=== PATIENT | female | born 1950 | race Caucasian/White ===

== ENCOUNTER 2018-06-12 17:42 | Inpatient (IN) ==
[2018-06-13] MEDS ORDERED: Mag Hydrox/Al Hydrox/Simeth 30 ML UDC PO PRN (17:32)
[2018-06-13] MEDS: *HR* OxyCODONE Immed Rel 5 MG TABLET PO PRN (18:51)
[2018-06-14] MEDS: Acetaminophen 325 MG TABLET PO PRN ×2 (00:03→20:06)
[2018-06-14] MEDS: *HR* OxyCODONE Immed Rel 5 MG TABLET PO PRN ×5 (05:36→20:06)
[2018-06-14] MEDS: *HR* Enoxaparin 40 MG/0.4 ML SYRINGE SQ SCH (05:36)
[2018-06-14 05:44] LABS: Basophils % 0.4 %; Eosinophils # 0.2 K/mcL (0.0-0.6); Eosinophils % 3.1 %; Hematocrit 29.1 % (35.3-44.9); Hemoglobin 9.4 g/dL (11.5-15.4); Lymphocytes # 1.1 K/mcL (0.6-4.6); Lymphocytes % 15.7 %; Mean Corpuscular HGB Conc 32.3 g/dL (31.6-35.5); Mean Corpuscular Hemoglobin 28.7 pg (28.0-33.3); Monocytes # 0.6 K/mcL (0.0-1.3); Monocytes % 8.1 %; Platelet Count 432 K/mcL (140-400); Red Blood Count 3.27 M/mcL (3.82-4.97); Red Cell Distribution Width 15.2 % (11.5-14.5); Segmented Neutrophils % 71.7 %
[2018-06-14 05:52] LABS: INR 1.2; Prothrombin Time 13.4 Seconds (9.4-12.1)
[2018-06-14 06:03] LABS: Blood Urea Nitrogen 16 mg/dL (8-23); Calcium 9.2 mg/dL (8.6-10.3); Carbon Dioxide 26 mEq/L (23-29); Chloride 105 mEq/L (98-107); Glucose 111 mg/dL (70-105); Osmolality,Calculated 284 (280-300); Potassium 4.2 mEq/L (3.5-5.1); Sodium 136 mEq/L (136-145)
[2018-06-14 06:54] LABS: BUN/Creatinine Ratio 18 (6-26); eGFR For Non-African Americans > 60 (> 60)
[2018-06-14] MEDS: Aspirin 325 MG TABLET PO SCH (08:45)
--- NOTE | 2018-06-14 10:53 | Internal Med History&Physical ---
Date of Encounter: 06/14/18 Time of Encounter: 10:51 Assessment and Plan (1) S/P total hip arthroplasty Current visit: Yes Status: Acute Patient is a new admission to facility for rehabilitation due to deconditioning secondary to left total hip replacement. Patient also has a history of a CVA with left hemiparesis. Patient's left hip and left lateral thigh surgical incisions appear healthy, dry and intact. Noted slight edema to left hip and left leg. Patient has a PFO to left ankle due to a history of left foot drop. Patient states that she has her pain to the left hip during mobilization but that is been tolerable with current medications. Patient is currently being evaluated by PT/OT with recommendations pending. Afebrile. We will continue with current plan of care. Qualifiers: Laterality: left Qualified Code(s): Z96.642 - Presence of left artificial hip joint (2) HTN (hypertension) Current visit: Yes Status: Chronic No acute issues. Patient's vital signs were stable. Patient with a history of low systolic experienced postoperatively while at [facility]. We will continue with current medications. Qualifiers: Hypertension type: essential hypertension Qualified Code(s): I10 - Essential (primary) hypertension (3) Anemia Current visit: Yes Status: Acute No acute issues. Patient had experienced postoperative blood loss while at [facility] and had received previous transfusion. Patient's hemoglobin here at this facility was 9.4. We will continue to monitor through serial labs during her stay at this facility. Qualifiers: Anemia type: unspecified type Qualified Code(s): D64.9 - Anemia, unspecified (4) CVA (cerebral vascular accident) Current visit: Yes Status: Chronic No acute issues. Patient continues to show slight left hemiparesis. Patient continues to use brace to left foot due to history of left foot drop. No other acute neurological changes have occurred per patient to medical records since her surgery. We will continue with current plan of care and PT/OT Qualifiers: CVA mechanism: unspecified Qualified Code(s): I63.9 - Cerebral infarction, unspecified Internal Medicine - H&P: HPI Admitted From: Hospital to Hospital Transfer Plans for Post Hospital Care: Home History of present illness: Ms. Silver is a 68 year old female, who experienced a mechanical fall resulting in a intratrochanteric hip fracture with minor displacement. Patient had a left total hip replacement performed at [facility]. Per medical records patient's recovery included acute postoperative blood loss during which she received a transfusion of 2 units and issues with low blood pressure. Otherwise her recovery was uneventful and patient was transferred to this facility for further rehabilitation due to deconditioning related to her total hip replacement and due to history of a CVA with left hemiparesis. Patient currently appears relaxed and denies any current discomforts or shortness of breath. Patient states that she does have some pain to the left hip area during mobilization, but that is been tolerable with current pain medications. Patient also relates that she has continued issues with balance due to her left hemiparesis and currently wears a brace to her left ankle. Patient states that she did not need a walker prior to surgery but due to the increased weakness of the left leg use her walker during therapy. Left hip and leg remains slightly swollen, but surgical incisions appear healthy, dry and intact with a minimal amount of ecchymosis noted. No erythema. Past Med Surg Social Fam HX - Past Medical History Medical history: CVA, hyperlipidemia, hypertension Additional medical history: stroke 2015 Psychiatric history: no psych history - Past Surgical History Additional surgical history: Tubal ligation. - Social History Smoking Status: Never smoker Smokeless Tobacco Status: No Alcohol use: none Drug use: none Internal Medicine - H&P: Meds Aspirin 325 mg PO DAILY 04/13/16 [History] Atorvastatin [Lipitor] 40 mg PO HS 04/13/16 [History] Losartan Potassium [Cozaar] 5 mg PO DAILY 04/13/16 [History] 3 Allergy/AdvReac Type Severity Reaction Status Date / Time No Known Allergies Allergy Verified 05/31/18 22:07 All Systems PM: A 10-system review of systems was performed and is negative for pertinent findings except as documented above in the HPI. - Constitutional Constitutional: no chills, no fever(s), no night sweats - EENT Eyes: no change in vision, no discharge, no pain, no photophobia Ears: no ear discharge, no ear pain, no tinnitus Nose, mouth and throat: no dysphagia, no nasal discharge, no neck pain, no sore throat - Cardiovascular Cardiovascular ROS IM: as per HPI, no chest pain, no diaphoresis, no dyspnea, no lightheadedness, no palpitations, no syncope - Respiratory Respiratory: as per HPI, no cough, no dyspnea, no wheezing, no excessive phlegm production - Gastrointestinal Gastrointestinal: as per HPI, no abdominal pain, no diarrhea, no hematemesis, no hematochezia, no melena, no nausea, no vomiting - Genitourinary Genitourinary: no change in urinary stream, no dysuria, no flank pain, no hematuria - Musculoskeletal Musculoskeletal ROS IM: as per HPI, no numbness, no tingling - Integumentary Integumentary IM: no rash, no unusual bruising - Neurological Neurological ROS: as per HPI, no confusion, no convulsions, no focal weakness, no numbness, no tingling, no tremor(s) - Hematologic/Lymphatic Hematologic/Lymphatic: no easy bruising - Constitutional Vitals: Temp Pulse Resp BP Pulse Ox 97.4 F L 73 16 134/63 94 06/14/18 07:11 06/14/18 07:11 06/14/18 07:11 06/14/18 07:11 06/14/18 07:11 General appearance: Present: A&O X 3, pleasant - Head Head exam: Present: atraumatic, normocephalic - Eye Eye exam: Present: PERRL, conjuntiva pink, sclera anicteric Pupils: Present: PERRL - Neck Neck exam general surgery: Present: supple, trachea midline. Absent: lymphadenopathy - Respiratory Respiratory exam: Present: CTAB. Absent: accessory muscle use, rales, rhonchi, wheezes - Cardiovascular Cardiovascular exam: Present: RRR, +S1, +S2. Absent: diastolic murmur, gallop, rubs, systolic murmur - GI/Abdominal GI/Abdominal exam: Present: normal bowel sounds, soft, no peritoneal signs. Absent: distended, tenderness - Extremities Exam Extremities exam: Present: warm, radial pulses palpable and symmetrical. Absent : calf tenderness, cyanotic, pedal edema Additional comments: Left hip appears slightly swollen with surgical incisions to the left hip and the lateral left thigh, which appear healthy, dry and intact. Minimal ecchymosis noted surrounding the incisions and no erythema noted. No drainage. Patient's left hip and leg is swollen with nonpitting edema. - Neurological Exam Neurological exam: Present: CN II-XII intact, oriented X3. Absent: pronater drift, facial droop, speech deficit Additional comments: Patient shows left hemiparesis. LUE shows 4+/5 MS and LLE 4/5, with noted poor dorsiflexion. Left ankle has brace in place. Right extremity show 5/5. Patient denies any decreased sensitivity. No hyperreflexia. - Skin Skin exam: Present: dry, intact Internal Med - H&P Results - Labs CBC & Chem 7: 06/14/18 05:15 06/14/18 05:15 Labs: Short CBC 06/14/18 Range/Units 05:15 WBC 7.0 (4.3-11.1) K/mcL Hgb 9.4 L (11.5-15.4) g/dL Hct 29.1 L (35.3-44.9) % Plt Count 432 H (140-400) K/mcL Neutrophils # 5.0 (1.6-8.9) K/mcL BMP 06/14/18 05:15 Sodium 136 Potassium 4.2 Chloride 105 Carbon Dioxide 26 BUN 16 Creatinine 0.91 Glucose 111 H Calcium 9.2
[2018-06-15] MEDS: *HR* OxyCODONE Immed Rel 5 MG TABLET PO PRN ×3 (03:06→20:52)
[2018-06-15] MEDS: Acetaminophen 325 MG TABLET PO PRN ×3 (03:06→20:52)
[2018-06-15] MEDS: *HR* Enoxaparin 40 MG/0.4 ML SYRINGE SQ SCH (06:04)
[2018-06-15] MEDS: Aspirin 325 MG TABLET PO SCH (08:29)
--- NOTE | 2018-06-15 15:33 | Internal Med Progress Note ---
Date of Encounter: 06/15/18 Time of Encounter: 15:31 - Assessment and plan (1) S/P total hip arthroplasty Current Visit: Yes Status: Acute Assessment and plan: No acute issues. Patient's left hip and thigh surgical incisions appear healthy and healing well. Jaxson remain in place and will have them removed as patient surgery was on 06/01.. Patient has been progressing well with physical therapy. Patient does continue to have some gait imbalance due to previous CVA with slight left hemiparesis and slight left dorsiflexion weakness requiring a brace. We will continue with current medications. Patient's pain is well managed with current medications. We will continue with physical therapy. Qualifiers: Laterality: left Qualified Code(s): Z96.642 - Presence of left artificial hip joint (2) HTN (hypertension) Current Visit: Yes Status: Chronic Assessment and plan: Vital signs are stable. We will continue with current medications Qualifiers: Hypertension type: essential hypertension Qualified Code(s): I10 - Essential (primary) hypertension (3) Anemia Current Visit: Yes Status: Acute Assessment and plan: No acute issues. Patient's most recent hemoglobin is 9.4. We will continue to monitor with serial labs Qualifiers: Anemia type: unspecified type Qualified Code(s): D64.9 - Anemia, unspecified (4) CVA (cerebral vascular accident) Current Visit: Yes Status: Chronic Assessment and plan: No acute issues. Patient continues to show slight left hemiparesis and left foot drop. No acute neurological changes noted on exam. We will continue with physical therapy and current plan of care Qualifiers: CVA mechanism: unspecified Qualified Code(s): I63.9 - Cerebral infarction, unspecified - Time Spent With Patient less than 15 minutes - Subjective Interval history: Patient appears relaxed and denies any current discomforts or dyspnea. States that her PT/OT has been progressing welll. - Constitutional Vitals: Temp Pulse Resp BP Pulse Ox 98.0 F 77 16 147/74 95 06/15/18 06:45 06/15/18 06:45 06/15/18 06:45 06/15/18 06:45 06/15/18 06:45 General appearance: Present: A&O X 3, pleasant - Head Head exam: Present: atraumatic, normocephalic - Eye Eye exam: Present: PERRL, conjuntiva pink, sclera anicteric Pupils: Present: PERRL - Neck Neck exam general surgery: Present: supple, trachea midline. Absent: lymphadenopathy - Respiratory Respiratory exam: Present: CTAB. Absent: accessory muscle use, rales, rhonchi, wheezes - Cardiovascular Cardiovascular exam: Present: RRR, +S1, +S2. Absent: diastolic murmur, gallop, rubs, systolic murmur - GI/Abdominal GI/Abdominal exam: Present: normal bowel sounds, soft, no peritoneal signs. Absent: distended, tenderness - Extremities Exam Extremities exam: Present: warm, radial pulses palpable and symmetrical. Absent : calf tenderness, cyanotic, pedal edema Additional comments: Left hip remains slightly swollen. Left hip and lateral thigh with incisions that are dry and intact with jaxson remain in place. No erythema. Slight amount of ecchymosis surrounding sites. No drainage - Neurological Exam Neurological exam: Present: CN II-XII intact, oriented X3. Absent: pronater drift, facial droop, speech deficit Additional comments: Patient with remote CVA showing left hemiparesis. Left extremities show +4/5 and patient noted to have 4/5 dorsiflexion, requiring brace. Right extremities are 5/5 muscle strength. No focal deficits noted on exam - Skin Skin exam: Present: dry, intact Internal Medicine: Result - Labs CBC & Chem 7: 06/14/18 05:15 06/14/18 05:15 - ABG Interpretation ABG results: PT/INR, D-dimer PT 13.4 Seconds (9.4-12.1) H 06/14/18 05:15 Consult Discharge Plan - Plan Referrals: Nicole Barrett, [employer] [Primary Care Provider] -
[2018-06-16] MEDS: *HR* OxyCODONE Immed Rel 5 MG TABLET PO PRN ×3 (04:26→16:08)
[2018-06-16] MEDS: *HR* Enoxaparin 40 MG/0.4 ML SYRINGE SQ SCH (05:16)
[2018-06-16] MEDS: Aspirin 325 MG TABLET PO SCH (08:12)
[2018-06-16] MEDS: Acetaminophen 325 MG TABLET PO PRN ×2 (10:42→22:29)
--- NOTE | 2018-06-16 15:10 | Internal Med Progress Note ---
Date of Encounter: 06/16/18 Time of Encounter: 15:08 - Assessment and plan (1) S/P total hip arthroplasty Current Visit: Yes Status: Acute Assessment and plan: She is doing well and participating in therapy, well. She is progressing nicely and should be able to go home soon. Qualifiers: Laterality: left Qualified Code(s): Z96.642 - Presence of left artificial hip joint (2) HTN (hypertension) Current Visit: Yes Status: Chronic Assessment and plan: Insert clinically stable. Qualifiers: Hypertension type: essential hypertension Qualified Code(s): I10 - Essential (primary) hypertension (3) CVA (cerebral vascular accident) Current Visit: Yes Status: Chronic Assessment and plan: She has mild left weakness but this is doing well and stable. Qualifiers: CVA mechanism: unspecified Qualified Code(s): I63.9 - Cerebral infarction, unspecified (4) Anemia Current Visit: Yes Status: Acute Assessment and plan: She has acute blood loss anemia after surgery but this is well tolerated and not a problem, acutely. We will recheck in a couple of days. Qualifiers: Anemia type: unspecified type Qualified Code(s): D64.9 - Anemia, unspecified - Subjective Interval history: Patient is without complaint. She is participating well in therapy. Nursing notes that she had increased drainage at her dressing and they applied an ABD. However, in the 4 hours since her dressing was changed she has had only a spot on the dressing. Bowels moved normally today and she has no other complaints. Patient has no complaint of chest discomfort, dyspnea, orthopnea, palpitations, nausea or vomiting, constipation or diarrhea, other changes in bowel habits, difficulty with urination, rash or itching, or other new complaints, except as mentioned above. Review of systems is otherwise negative. I discussed management of her care with nursing staff. - Constitutional Vitals: Temp Pulse Resp BP Pulse Ox 97.4 F L 67 17 139/73 94 06/16/18 06:51 06/16/18 06:51 06/16/18 06:51 06/16/18 06:51 06/16/18 06:51 General appearance: Present: A&O X 3, pleasant Exam: Examination: (Except as mentioned above): General: In no apparent distress. Alert and oriented 3. Nondiaphoretic. Head: Atraumatic and normocephalic. Respiratory: No use of accessory muscles. Lungs are clear throughout. Normal airflow. Cardiovascular: Regular rate and rhythm without murmur appreciated. Abdomen: Bowel sounds are normal. No hepatosplenomegaly mass or tenderness appreciated. Obese and therefore difficult to palpate deeply. Extremities: No cyanosis clubbing or change in edema. (She has edema at her left knee and up into her. Operative area but no fluctuance or expressed discharge.) Skin: Warm and non-diaphoretic with no new lesions noted. Internal Medicine: Result - Labs CBC & Chem 7: 06/14/18 05:15 06/14/18 05:15 - ABG Interpretation ABG results: PT/INR, D-dimer PT 13.4 Seconds (9.4-12.1) H 06/14/18 05:15 Consult Discharge Plan - Plan Referrals: Nicole Barrett, [employer]AND[employer] REPAIR PERSON [Primary Care Provider] -
[2018-06-17] MEDS: *HR* OxyCODONE Immed Rel 5 MG TABLET PO PRN ×4 (02:34→23:18)
[2018-06-17] MEDS: Acetaminophen 325 MG TABLET PO PRN ×2 (05:44→15:48)
[2018-06-17] MEDS: *HR* Enoxaparin 40 MG/0.4 ML SYRINGE SQ SCH (05:44)
[2018-06-17] MEDS: Aspirin 325 MG TABLET PO SCH (08:12)
--- NOTE | 2018-06-17 09:28 | Internal Med Progress Note ---
Date of Encounter: 06/17/18 Time of Encounter: 09:26 - Assessment and plan (1) S/P total hip arthroplasty Current Visit: Yes Status: Acute Assessment and plan: Continue PT and OT. Continue current pain regimen. Follow up with ortho as scheduled. Qualifiers: Laterality: left Qualified Code(s): Z96.642 - Presence of left artificial hip joint (2) HTN (hypertension) Current Visit: Yes Status: Chronic Assessment and plan: Controlled with current medication. Monitor blood pressure. Qualifiers: Hypertension type: essential hypertension Qualified Code(s): I10 - Essential (primary) hypertension (3) CVA (cerebral vascular accident) Current Visit: Yes Status: Chronic Assessment and plan: Slight left-sided weakness. Qualifiers: CVA mechanism: unspecified Qualified Code(s): I63.9 - Cerebral infarction, unspecified - Time Spent With Patient less than 15 minutes - Subjective Interval history: Resting in bed, states pain is controlled to left hip with current medication.. Participated well with therapy yesterday. States bowels moved yesterday. Appetite and hydration are maintained. - Constitutional Vitals: Temp Pulse Resp BP Pulse Ox 97.6 F 70 16 156/67 99 06/17/18 07:34 06/17/18 07:34 06/17/18 07:34 06/17/18 07:34 06/17/18 07:34 General appearance: Present: A&O X 3, pleasant - Head Head exam: Present: atraumatic, normocephalic - Eye Eye exam: Present: PERRL, conjuntiva pink, sclera anicteric Pupils: Present: PERRL - Neck Neck exam general surgery: Present: supple, trachea midline. Absent: lymphadenopathy - Respiratory Respiratory exam: Present: CTAB. Absent: accessory muscle use, rales, rhonchi, wheezes - Cardiovascular Cardiovascular exam: Present: RRR, +S1, +S2. Absent: diastolic murmur, gallop, rubs, systolic murmur - GI/Abdominal GI/Abdominal exam: Present: normal bowel sounds, soft, no peritoneal signs. Absent: distended, tenderness - Extremities Exam Extremities exam: Present: warm, radial pulses palpable and symmetrical. Absent : calf tenderness, cyanotic, pedal edema - Incison Comments: Left hip surgical incisions dressings dry and intact. Incisions well approximated. No sign of infection. No drainage. - Neurological Exam Neurological exam: Present: CN II-XII intact, oriented X3, no focal deficits. Absent: pronater drift, facial droop, speech deficit - Skin Skin exam: Present: dry, intact Internal Medicine: Result - Labs CBC & Chem 7: 06/14/18 05:15 06/14/18 05:15 - ABG Interpretation ABG results: PT/INR, D-dimer PT 13.4 Seconds (9.4-12.1) H 06/14/18 05:15 Consult Discharge Plan - Plan Referrals: Nicole Barrett, TEACHER [employer] [Primary Care Provider] -
[2018-06-18] MEDS: Acetaminophen 325 MG TABLET PO PRN (01:46)
[2018-06-18] MEDS: *HR* Enoxaparin 40 MG/0.4 ML SYRINGE SQ SCH (05:20)
[2018-06-18] MEDS: *HR* OxyCODONE Immed Rel 5 MG TABLET PO PRN ×3 (05:20→21:10)
[2018-06-18 06:23] LABS: Basophils % 0.7 %; Eosinophils # 0.2 K/mcL (0.0-0.6); Eosinophils % 3.2 %; Hematocrit 31.8 % (35.3-44.9); Hemoglobin 10.2 g/dL (11.5-15.4); Immature Granulocytes % 0.5 % (0-4); Lymphocytes # 1.6 K/mcL (0.6-4.6); Mean Corpuscular HGB Conc 32.1 g/dL (31.6-35.5); Mean Corpuscular Hemoglobin 28.6 pg (28.0-33.3); Mean Corpuscular Volume 89.1 fL (83.0-100.0); Mean Platelet Volume 9.6 fL (9.4-12.4); Monocytes # 0.5 K/mcL (0.0-1.3); Monocytes % 9.1 %; Neutrophils # 3.5 K/mcL (1.6-8.9); Platelet Count 545 K/mcL (140-400); Red Blood Count 3.57 M/mcL (3.82-4.97); Red Cell Distribution Width 14.7 % (11.5-14.5); Segmented Neutrophils % 59.5 %
[2018-06-18 06:40] LABS: BUN/Creatinine Ratio 21 (6-26); Blood Urea Nitrogen 20 mg/dL (8-23); Calcium 9.3 mg/dL (8.6-10.3); Carbon Dioxide 25 mEq/L (23-29); Chloride 105 mEq/L (98-107); Glucose 99 mg/dL (70-105); Osmolality,Calculated 291 (280-300); Potassium 3.8 mEq/L (3.5-5.1); Sodium 139 mEq/L (136-145); eGFR For Non-African Americans 58 (> 60)
[2018-06-18] MEDS: Aspirin 325 MG TABLET PO SCH (08:13)
--- NOTE | 2018-06-18 11:42 | Internal Med Progress Note ---
Date of Encounter: 06/18/18 Time of Encounter: 11:39 - Assessment and plan (1) S/P total hip arthroplasty Current Visit: Yes Status: Acute Assessment and plan: Continue PT and OT. Continue current pain regimen. Follow up with ortho as scheduled. Qualifiers: Laterality: left Qualified Code(s): Z96.642 - Presence of left artificial hip joint (2) HTN (hypertension) Current Visit: Yes Status: Chronic Assessment and plan: Controlled with current medication. Monitor blood pressure. Qualifiers: Hypertension type: essential hypertension Qualified Code(s): I10 - Essential (primary) hypertension (3) CVA (cerebral vascular accident) Current Visit: Yes Status: Chronic Assessment and plan: Slight left-sided weakness from old CVA. Qualifiers: CVA mechanism: unspecified Qualified Code(s): I63.9 - Cerebral infarction, unspecified - Time Spent With Patient less than 15 minutes - Subjective Interval history: Participating well with therapy. Ambulating with Walker in hallway with therapy. Resting in bed, states pain is controlled to left hip with current medication. States bowels moved yesterday. Appetite and hydration are maintained. Denies fever, chills, nausea, vomiting or diarrhea. Blood pressure elevated this morning but resolved to normal after Cozaar was given. Asymptomatic. Denied headache or change in vision. - Constitutional Vitals: Temp Pulse Resp BP Pulse Ox 98.0 F 71 16 152/71 96 06/18/18 07:18 06/18/18 07:18 06/18/18 07:18 06/18/18 11:19 06/18/18 07:18 General appearance: Present: cooperative, A&O X 3, pleasant, no acute distress, answers questions appropriately - Head Head exam: Present: atraumatic, normocephalic - Eye Eye exam: Present: PERRL, conjuntiva pink, sclera anicteric Pupils: Present: PERRL - Neck Neck exam general surgery: Present: supple, trachea midline. Absent: lymphadenopathy - Respiratory Respiratory exam: Present: CTAB. Absent: accessory muscle use, rales, rhonchi, wheezes - Cardiovascular Cardiovascular exam: Present: RRR, +S1, +S2. Absent: diastolic murmur, gallop, rubs, systolic murmur - GI/Abdominal GI/Abdominal exam: Present: normal bowel sounds, soft, no peritoneal signs. Absent: distended, tenderness - Extremities Exam Extremities exam: Present: warm, radial pulses palpable and symmetrical. Absent : calf tenderness, cyanotic, pedal edema - Incison Comments: Left hip incision dressing dry and intact. - Neurological Exam Neurological exam: Present: CN II-XII intact, oriented X3, no focal deficits. Absent: pronater drift, facial droop, speech deficit - Skin Skin exam: Present: dry, intact Internal Medicine: Result - Labs CBC & Chem 7: 06/18/18 04:35 06/18/18 04:35 Labs: Short CBC 06/18/18 Range/Units 04:35 WBC 5.9 (4.3-11.1) K/mcL Hgb 10.2 L (11.5-15.4) g/dL Hct 31.8 L (35.3-44.9) % Plt Count 545 H (140-400) K/mcL Neutrophils # 3.5 (1.6-8.9) K/mcL BMP 06/18/18 04:35 Sodium 139 Potassium 3.8 Chloride 105 Carbon Dioxide 25 BUN 20 Creatinine 0.96 Glucose 99 Calcium 9.3 - ABG Interpretation ABG results: PT/INR, D-dimer PT 13.4 Seconds (9.4-12.1) H 06/14/18 05:15 Consult Discharge Plan - Plan Referrals: Nicole Barrett, OVER[employer] OPERATOR [Primary Care Provider] -
[2018-06-19] MEDS: Acetaminophen 325 MG TABLET PO PRN ×2 (03:53→14:10)
[2018-06-19] MEDS: *HR* Enoxaparin 40 MG/0.4 ML SYRINGE SQ SCH (06:15)
[2018-06-19] MEDS: Aspirin 325 MG TABLET PO SCH (08:05)
[2018-06-19] MEDS: *HR* OxyCODONE Immed Rel 5 MG TABLET PO PRN ×2 (09:15→20:05)
--- NOTE | 2018-06-19 10:57 | Internal Med Progress Note ---
Date of Encounter: 06/19/18 Time of Encounter: 10:55 - Assessment and plan (1) S/P total hip arthroplasty Current Visit: Yes Status: Acute Assessment and plan: Continue PT and OT. Continue current pain regimen. Follow up with ortho as scheduled. Qualifiers: Laterality: left Qualified Code(s): Z96.642 - Presence of left artificial hip joint (2) HTN (hypertension) Current Visit: Yes Status: Chronic Assessment and plan: Controlled with current medication. Monitor blood pressure. Qualifiers: Hypertension type: essential hypertension Qualified Code(s): I10 - Essential (primary) hypertension (3) CVA (cerebral vascular accident) Current Visit: Yes Status: Chronic Assessment and plan: Slight left-sided weakness from old CVA. Qualifiers: CVA mechanism: unspecified Qualified Code(s): I63.9 - Cerebral infarction, unspecified - Time Spent With Patient less than 15 minutes - Subjective Interval history: Participating well with therapy. Ambulating with Walker in hallway with therapy. Resting in bed, states pain is controlled to left hip with current medication. States bowels moved yesterday. Appetite and hydration are maintained. Denies fever, chills, nausea, vomiting or diarrhea. - Constitutional Vitals: Temp Pulse Resp BP Pulse Ox 98.3 F 69 16 168/77 97 06/19/18 06:40 06/19/18 06:40 06/19/18 06:40 06/19/18 06:40 06/19/18 06:40 General appearance: Present: cooperative, A&O X 3, pleasant, no acute distress, answers questions appropriately - Head Head exam: Present: atraumatic, normocephalic - Eye Eye exam: Present: PERRL, conjuntiva pink, sclera anicteric Pupils: Present: PERRL - Neck Neck exam general surgery: Present: supple, trachea midline. Absent: lymphadenopathy - Respiratory Respiratory exam: Present: CTAB. Absent: accessory muscle use, rales, rhonchi, wheezes - Cardiovascular Cardiovascular exam: Present: RRR, +S1, +S2. Absent: diastolic murmur, gallop, rubs, systolic murmur - GI/Abdominal GI/Abdominal exam: Present: normal bowel sounds, soft, no peritoneal signs. Absent: distended, tenderness - Extremities Exam Extremities exam: Present: warm, radial pulses palpable and symmetrical. Absent : calf tenderness, cyanotic, pedal edema - Incison Comments: Left hip dressing dry and intact. Slight surrounding edema - Neurological Exam Neurological exam: Present: CN II-XII intact, oriented X3, no focal deficits. Absent: pronater drift, facial droop, speech deficit - Skin Skin exam: Present: dry, intact Internal Medicine: Result - Labs CBC & Chem 7: 06/18/18 04:35 06/18/18 04:35 - ABG Interpretation ABG results: PT/INR, D-dimer PT 13.4 Seconds (9.4-12.1) H 06/14/18 05:15 Consult Discharge Plan - Plan Referrals: Nicole Barertt, SHELL MACHINE OPERATOR [Primary Care Provider] -
[2018-06-20] MEDS: *HR* OxyCODONE Immed Rel 5 MG TABLET PO PRN ×3 (03:17→20:33)
[2018-06-20] MEDS: Acetaminophen 325 MG TABLET PO PRN ×2 (03:19→20:32)
[2018-06-20] MEDS: *HR* Enoxaparin 40 MG/0.4 ML SYRINGE SQ SCH (05:39)
--- NOTE | 2018-06-20 07:19 | Internal Med Progress Note ---
Date of Encounter: 06/20/18 Time of Encounter: 07:16 - Assessment and plan (1) S/P total hip arthroplasty Current Visit: Yes Status: Acute Assessment and plan: No acute issues. Patient's left hip and thigh surgical incisions appear healthy and healing well. Patient has been progressing well with physical therapy. Patient does continue to have some gait imbalance due to previous CVA with slight left hemiparesis and slight left dorsiflexion weakness requiring a brace. We will continue with current medications. Patient's pain is well managed with current medications. We will continue with physical therapy. Qualifiers: Laterality: left Qualified Code(s): Z96.642 - Presence of left artificial hip joint (2) HTN (hypertension) Current Visit: Yes Status: Chronic Assessment and plan: Vital signs are stable. We will continue with current medications Qualifiers: Hypertension type: essential hypertension Qualified Code(s): I10 - Essential (primary) hypertension (3) CVA (cerebral vascular accident) Current Visit: Yes Status: Chronic Assessment and plan: No acute issues. Patient continues to show slight left hemiparesis and left foot drop. No acute neurological changes noted on exam. We will continue with physical therapy and current plan of care Qualifiers: CVA mechanism: unspecified Qualified Code(s): I63.9 - Cerebral infarction, unspecified - Time Spent With Patient less than 15 minutes - Subjective Interval history: Patient appears relaxed and denies any current discomforts or dyspnea. Patient states that the pain to her left hip has been tolerable and that her pain medications have been effective. States that her PT/OT has been progressing welll. - Constitutional Vitals: Temp Pulse Resp BP Pulse Ox 98.3 F 70 17 87/45 92 06/20/18 07:15 06/20/18 07:15 06/20/18 07:15 06/20/18 07:15 06/20/18 07:15 General appearance: Present: cooperative, A&O X 3, pleasant, no acute distress, answers questions appropriately - Head Head exam: Present: atraumatic, normocephalic - Eye Eye exam: Present: PERRL, conjuntiva pink, sclera anicteric Pupils: Present: PERRL - Neck Neck exam general surgery: Present: supple, trachea midline. Absent: lymphadenopathy - Respiratory Respiratory exam: Present: CTAB. Absent: accessory muscle use, rales, rhonchi, wheezes - Cardiovascular Cardiovascular exam: Present: RRR, +S1, +S2. Absent: diastolic murmur, gallop, rubs, systolic murmur - GI/Abdominal GI/Abdominal exam: Present: normal bowel sounds, soft, no peritoneal signs. Absent: distended, tenderness - Extremities Exam Extremities exam: Present: warm, radial pulses palpable and symmetrical. Absent : calf tenderness, cyanotic, pedal edema Additional comments: Left hip remains slightly swollen. Surgical incisions to left hip and lateral thigh remained dry and intact with no erythema or ecchymosis noted. - Neurological Exam Neurological exam: Present: CN II-XII intact, oriented X3. Absent: pronater drift, facial droop, speech deficit Additional comments: Patient continues to have left hemiparesis with muscle strength on left extremities at 4/5, to include left foot drop with dorsiflexion at 3/5. Right extremities are 5/5. - Skin Skin exam: Present: dry, intact Internal Medicine: Result - Labs CBC & Chem 7: 06/18/18 04:35 06/18/18 04:35 - ABG Interpretation ABG results: PT/INR, D-dimer PT 13.4 Seconds (9.4-12.1) H 06/14/18 05:15 Consult Discharge Plan - Plan Referrals: Nicole Barrett, APPEALS ASSISTANT [Primary Care Provider] -
[2018-06-20] MEDS: Aspirin 325 MG TABLET PO SCH (08:18)
[2018-06-21] MEDS: *HR* Enoxaparin 40 MG/0.4 ML SYRINGE SQ SCH (05:14)
[2018-06-21] MEDS: Acetaminophen 325 MG TABLET PO PRN ×3 (05:18→18:26)
[2018-06-21] MEDS: *HR* OxyCODONE Immed Rel 5 MG TABLET PO PRN ×3 (05:18→18:26)
--- NOTE | 2018-06-21 09:17 | Internal Med Progress Note ---
Date of Encounter: 06/21/18 Time of Encounter: 09:15 - Assessment and plan (1) S/P total hip arthroplasty Current Visit: Yes Status: Acute Assessment and plan: No acute issues. Patient's left hip and thigh surgical incisions appear healthy and healing well. Patient continues to be progressing well with physical therapy. Patient does continue to have some gait imbalance due to previous CVA with slight left hemiparesis and slight left dorsiflexion weakness requiring a brace. We will continue with current medications. Patient's pain is well managed with current medications. We will continue with physical therapy. Patient will continue follow-up with orthopedic surgeon. Qualifiers: Laterality: left Qualified Code(s): Z96.642 - Presence of left artificial hip joint (2) HTN (hypertension) Current Visit: Yes Status: Chronic Assessment and plan: Vital signs are stable. We will continue with current medications Qualifiers: Hypertension type: essential hypertension Qualified Code(s): I10 - Essential (primary) hypertension (3) CVA (cerebral vascular accident) Current Visit: Yes Status: Chronic Assessment and plan: No acute issues. Patient continues to show slight left hemiparesis and left foot drop. No acute neurological changes noted on exam. We will continue with physical therapy and current plan of care Qualifiers: CVA mechanism: unspecified Qualified Code(s): I63.9 - Cerebral infarction, unspecified - Time Spent With Patient less than 15 minutes - Subjective Interval history: Patient appears relaxed and denies any current discomforts or dyspnea. Patient states that the pain to her left hip lessening and that her pain medications have been effective. States that her PT/OT has been progressing welll. - Constitutional Vitals: Temp Pulse Resp BP Pulse Ox 97.7 F 70 16 135/73 95 06/21/18 07:00 06/21/18 07:00 06/21/18 07:00 06/21/18 07:00 06/21/18 07:00 General appearance: Present: cooperative, A&O X 3, pleasant, no acute distress, answers questions appropriately - Head Head exam: Present: atraumatic, normocephalic - Eye Eye exam: Present: PERRL, conjuntiva pink, sclera anicteric Pupils: Present: PERRL - Neck Neck exam general surgery: Present: supple, trachea midline. Absent: lymphadenopathy - Respiratory Respiratory exam: Present: CTAB. Absent: accessory muscle use, rales, rhonchi, wheezes - Cardiovascular Cardiovascular exam: Present: RRR, +S1, +S2. Absent: diastolic murmur, gallop, rubs, systolic murmur - GI/Abdominal GI/Abdominal exam: Present: normal bowel sounds, soft, no peritoneal signs. Absent: distended, tenderness - Extremities Exam Extremities exam: Present: warm, radial pulses palpable and symmetrical. Absent : calf tenderness, cyanotic, pedal edema Additional comments: Left hip and left lateral thigh surgical incisions appear to be healing well. Continued slight swelling to the left hip and leg. - Neurological Exam Neurological exam: Present: CN II-XII intact, oriented X3. Absent: pronater drift, facial droop, speech deficit Additional comments: Patient continues to slow slight residual to the left with hemiparesis having +4 /5 muscle strength to LE and noted foot drop with 4/5 on dorsiflexion. Patient uses a brace on left foot. Right extremities are 5/5. No other acute neurological deficits noted on exam - Skin Skin exam: Present: dry, intact Internal Medicine: Result - Labs CBC & Chem 7: 06/18/18 04:35 06/18/18 04:35 - ABG Interpretation ABG results: PT/INR, D-dimer PT 13.4 Seconds (9.4-12.1) H 06/14/18 05:15 Consult Discharge Plan - Plan Referrals: Nicole Barrett, DRAW BENCH OPERATOR HELPER [Primary Care Provider] -
[2018-06-21] MEDS: Aspirin 325 MG TABLET PO SCH (09:37)
[2018-06-22] MEDS: *HR* OxyCODONE Immed Rel 5 MG TABLET PO PRN (06:48)
[2018-06-22] MEDS: Acetaminophen 325 MG TABLET PO PRN (06:50)
[2018-06-22 07:28] VITALS: BP 163/88
--- NOTE | 2018-06-22 09:24 | Discharge Summary ---
Date of Encounter: 06/22/18 Time of Encounter: 09:20 - Discharge Diagnosis (1) S/P total hip arthroplasty Priority: Primary Status: Acute Comments: Patient appears relaxed but does complain of slight pain to her left groin, which she states that she strained during exercises. Patient denies any pain to her hip or any antalgic pain. Patient states that the pain in her groin increases during flexion, such as repositioning to standing. We will start a muscle relaxant and give a prescription for discharge. Patient's left hip remains slightly swollen with surgical incisions fairly well-healed and healthy. Pain is been well-tolerated with current medications. Patient continues to progress well with physical therapy and has been able to ambulate with the use of a brace to her left ankle due to foot drop from a previous CVA. Patient is to continue with physical therapy as an outpatient and is to follow -up with her orthopedic surgeon and PCP Qualifiers: Laterality: left Qualified Code(s): Z96.642 - Presence of left artificial hip joint (2) HTN (hypertension) Priority: Secondary Status: Chronic Comments: No acute issues during her stay at this facility. Patient's blood pressure has remained stable. Patient is to continue with home medications and follow up with PCP. Qualifiers: Hypertension type: essential hypertension Qualified Code(s): I10 - Essential (primary) hypertension (3) CVA (cerebral vascular accident) Priority: Secondary Status: Chronic Comments: Patient with a remote CVA that has caused a slight left hemiparesis with muscle strength that +4/5 and patient also experienced left foot drop at 4/5 on dorsiflexion. Patient is required a AFO brace which has assisted her in ambulation area no other acute neurological deficits of been noted during her stay at this facility. Patient is to continue with follow-up with PCP. Qualifiers: CVA mechanism: unspecified Qualified Code(s): I63.9 - Cerebral infarction, unspecified Hospital course: Ms. Silver is a 68 year old female, who experienced a mechanical fall resulting in a intratrochanteric hip fracture with minor displacement. Patient had a left total hip replacement performed at [facility]. Per medical records patient's recovery included acute postoperative blood loss during which she received a transfusion of 2 units and issues with low blood pressure. Otherwise her recovery was uneventful and patient was transferred to this facility for further rehabilitation due to deconditioning related to her total hip replacement and due to history of a CVA with left hemiparesis. Patient currently has complaint of slight pain to her left groin that began last evening. Patient states that she had strained her groin during exercises and feels the pain mostly during change of position when standing and ambulating. Patient denies any pain to her left hip. She denies any other current discomforts or shortness of breath. Patient states that her pain has been tolerable with current pain medications. Patient is being started on a low -dose muscle relaxant of Zanaflex with a prescription provided. Patient also relates that she has continued issues with balance due to her left hemiparesis and currently wears a brace to her left ankle. Patient states that she did not need a walker prior to surgery but due to the increased weakness of the left leg use her walker during therapy. Her surgical incisions appear healthy and fairly well-healed. Patient is being discharged to home with continued physical therapy to be done as an outpatient. Patient is recommended to continue follow-up with her PCP and orthopedic surgeon. Patient was instructed to continue with her home medications. Discharge discussed with: patient Time spent discussing smoking cessation with patient: 3 to 10 minutes - Time Spent with Patient Total time spent providing and/or coordinating discharge services: Less than 30 minutes - Discharge Medications Home Medications: Aspirin 325 mg PO DAILY 04/13/16 [History] Atorvastatin [Lipitor] 40 mg PO HS 04/13/16 [History] Losartan Potassium [Cozaar] 5 mg PO DAILY 04/13/16 [History] Allergies/Adverse Reactions: 3 Allergy/AdvReac Type Severity Reaction Status Date / Time No Known Allergies Allergy Verified 05/31/18 22:07 Date of admission: 06/13/18 16:42 Primary care physician: Nicole Barrett CNP Consults: 06/13/18 17:34 Consult to Occupational Therapy [CONS] Routine Comment: Evaluate, develop and implement POC Reason for Consult: eval ant treat Does patient have active BEDREST order?: No Is patient medically & hemodynamically stable?: Yes Patient assessed for mobility or mobilized this visit?: Yes Consult to Physical Therapy [CONS] Routine Comment: Evaluate, develop and implement POC Reason for Consult: eval and treat Does patient have active BEDREST order?: No Is patient medically & hemodynamically stable?: Yes Patient assessed for mobility or mobilized this visit?: Yes Consult to Recreational Therapy [CONS] Routine Comment: Evaluate, develop and implement POC Consult to Physical Meteorologist [CONS] Routine Reason for SW Consult: discharge planning 06/13/18 17:39 Consult to Physical Medicine/Rehab [CONS] Routine Reason for Consult: Please evaluate and manage therapies' guidelines and recommend pathway to reconditioning. Call Completed: No Discharging clinician: Supa Jackson - Constitutional Vitals: Temp Pulse Resp BP Pulse Ox 98.4 F 90 18 163/88 96 06/22/18 07:00 06/22/18 07:00 06/22/18 07:00 06/22/18 07:00 06/22/18 07:00 General appearance: Present: cooperative, A&O X 3, pleasant, no acute distress, answers questions appropriately - Head Head exam: Present: atraumatic, normocephalic - Eye Eye exam: Present: PERRL, conjuntiva pink, sclera anicteric Pupils: Present: PERRL - Neck Neck exam general surgery: Present: supple, trachea midline. Absent: lymphadenopathy - Respiratory Respiratory exam: Present: CTAB. Absent: accessory muscle use, rales, rhonchi, wheezes - Cardiovascular Cardiovascular exam: Present: RRR, +S1, +S2. Absent: diastolic murmur, gallop, rubs, systolic murmur - GI/Abdominal GI/Abdominal exam: Present: normal bowel sounds, soft, no peritoneal signs. Absent: distended, tenderness - Extremities Exam Extremities exam: Present: warm, radial pulses palpable and symmetrical. Absent : calf tenderness, cyanotic, pedal edema Additional comments: Left hip remains slightly swollen. Left lateral hip and lateral thigh surgical incisions appear well healed. No tenderness on palpation of left hip or groin. No limits to range of motion - Neurological Exam Neurological exam: Present: CN II-XII intact, oriented X3. Absent: pronater drift, facial droop, speech deficit Additional comments: Patient continues to have left hemiparesis with left extremities muscle strength at +4/5 and has left foot drop with a 4/5 dorsiflexion. Right extremities at 5/5. - Skin Skin exam: Present: dry, intact - Patient Status Disposition: Home, Self-Care Condition: Good Functional capacity at discharge: uses cane/walker Overall status at discharge: patient is progressing back to baseline - Discharge Instructions Follow Up With: Nicole Barrett, SENIOR SOFTWARE ENGINEERING MANAGER [Primary Care Provider] - - Diet and Activity Activity: ambulate only with your walker, as per physical therapy Diet: low fat, low cholesterol, low salt diet
[2018-06-22] MEDS ORDERED: tiZANidine 4 MG TABLET PO ONE (09:27)
[2018-06-22] MEDS: Aspirin 325 MG TABLET PO SCH (09:30)
== END 2018-06-22 11:30 | disposition home or self-care (01) | DRG 560 ==
LOC: INPGRE 06-13 16:42